=== PATIENT | female | born 1955 | race Caucasian/White ===

== ENCOUNTER → 2017-01-21 | Outpatient (CLI) | payer MEDICAID ==
[~2017-01-21] MED LIST: ASPIRIN LO-DOSE81 MG PO; COLACE100 MG PO; DITROPAN5 MG PO; FLEXERIL10 MG PO; HUMIBID LA (MU600 MG PO; HYDROCHLOROTHIA50 MG PO; LIORESAL10 MG PO; LIPITOR80 MG PO; MELATIN3 MG PO; MILK OF MA400 MG/5 M PO; MYRBETRIQ25 MG PO; NEURONTIN100 MG PO; NEURONTIN300 MG PO; NICODERM / HABIT7 MG TRANS; NORVASC10 MG PO; PLAVIX75 MG PO; PRINIVIL (ZESTR20 MG PO; PROTONIX40 MG PO; PROVENTIL OR V6.7 GM INH; QNASL8.7 GM INH; SENNA8.6 MG PO; SPIRIVA18 MCG INH; TRANDATE OR NO100 MG PO; TYLENOL325 MG PO; ZOFRAN4 MG PO
== END | disposition disaster alternative care site (69) ==
LOC: LGSMG 14:20
DX: N18.3 Chronic kidney disease, stage 3 (moderate) (principal)

== ENCOUNTER 2017-04-08 13:04 | Inpatient (IN) | payer MEDICAID ==
[~2017-04-08] VITALS: Ht 170.2 cm; Wt 73.8 kg
--- NOTE | ~2017-04-08 | CON ---
PATIENT'S NAME: SAIDA VENTURA [facility] AGE: 61 Y [address] ROOM: [id number] [place], [place] [address] LOCATION: [facility] ADMIT DATE: 04/08/2017 Consultation DISCHARGE DATE: FAMILY PHYSICIAN: SAMANTHA MALCOLM MD ATTENDING PHYSICIAN: Orlando Vu Team members reporting include Dr. Vu; Alicia Amos, social insurance specialist; Avril Noel RN; Christianne Clemens, PT; Chantelle Claros, PT; Janeen Zapien, OT; Sally Gould, Speech Therapy; Clau Erickson, therapeutic rec; and Sister Josee Zelaya, Pastoral Care. CURRENT STATUS: Morelia is a 61-year-old woman, admitted to our inpatient rehab unit on April 08, 2017 following a CVA. She also has a history of MS, hypertension, arthritis, asthma, dyslipidemia, lumbar spinal stenosis with neurogenic claudication, coronary artery disease. The patient is continent of bowel and bladder. No skin or pain issues. The patient is on a cardiac diet. She can complete all of her transfers at minimal assistance. The patient can ambulate 150 feet with a 4-wheeled walker with minimal assistance and twdc-gkik-qucj assistance. She has loss of tone in her right arm and leg. She can climb 4 stairs with one railing at minimal assistance. The patient can dress her upper body at moderate assistance; lower body, dependent; grooming, standby; bathing, moderate assistance; shower transfers, minimal to moderate assistance; and feeding, standby. The patient's right arm was affected. The patient's comprehension is at minimal assistance. Language and expression, minimal assistance. Memory minimal assistance and problem solving, minimal assistance. She does have facial weakness and numbness. Her speech is fairly clear. She does have a little facial droop, some motor planning control issues, as well as memory issues. The patient is open to pastoral care. DISCHARGE PLAN: The patient is receiving 3 hours of PT, OT, and speech Saturday through Saturday. The patient has daily rehab, nursing, physiatry involvement, as well as therapeutic recreational services 4 days per week. The patient has shown functional improvement and is progressing. Please see her plan of care for specific goals. Plan is for the patient to discharge in approximately 3 to 4 weeks. Plan is for the patient to return to home with her daughter in [place]. ALICIA AMOS FOR ORLANDO VU MD TD/evert PATIENT'S NAME: SAIDA VENTURA [facility] AGE: 61 Y [address] ROOM: [place] [address] LOCATION: [facility] ADMIT DATE: 04/08/2017 Consultation DISCHARGE DATE: FAMILY PHYSICIAN: SAMANTHA MALCOLM MD ATTENDING PHYSICIAN: Orlando Vu /[id number] d: 04/26/172322 t: 05/13/17 1412, CONSULTATION REPORT
--- NOTE | ~2017-04-08 | HP ---
PATIENT'S NAME: HILDA VENTURAH [facility] AGE: 61 Y [address] ROOM: [place] [address] LOCATION: [facility] ADMIT DATE: 04/08/2017 History & Physical DISCHARGE DATE: FAMILY PHYSICIAN: SAMANTHA MALCOLM MD ATTENDING PHYSICIAN: Orlando Jordan DATE OF SERVICE: HISTORY OF PRESENT ILLNESS: This 61-year-old lady is admitted referred from [facility] in [place] with right-sided weakness and confusion. Initially, she had been admitted with right-sided weakness, right upper and lower extremity weakness with no visual difficulty; however, there is some confusion also. She was put on intensive rehab there, and after she recovered she was more or less able to do a few things and family decided that she better be closer to home which is near [place], [place]. She was recommended to come here and after discussion, we decided to admit her for intensive rehabilitation. She is, at the present time, alert and oriented. Vital signs on admission, 115/73, temperature 98.3, pulses 91 and regular, respiration rate 11, and she is 5 feet 7 inches and weighs 71.5 kg. ALLERGIES: SHE IS ALLERGIC POSSIBLY TO CODEINE AND PENICILLIN. PAST MEDICAL HISTORY: Past history of significance, as follows: 1. History of hypertension. 2. Arthritis. 3. Asthma. 4. Multiple sclerosis per history. 5. Dyslipidemia. 6. Lumbar spine stenosis with neurogenic claudication on and off. 7. Status post appendectomy. 8. Status post section. 9. Status post cholecystectomy and hysterectomy. 10. Transforaminal interbody fusion, TLIF per history. 11. Coronary artery disease. 12. She is able to move right upper and lower extremity, but with not much ability due to weakness and decreased coordination. PHYSICAL EXAMINATION: HEAD: Normocephalic. PATIENT'S NAME: HILDA VENTURAH [facility] AGE: 61 Y [address] ROOM: [place] [address] LOCATION: [facility] ADMIT DATE: 04/08/2017 History & Physical DISCHARGE DATE: FAMILY PHYSICIAN: SAMANTHA MALCOLM MD ATTENDING PHYSICIAN: Orlando Jordan NEUROLOGIC: Cranial nerves 2 through 12 are within normal limits. She has no facial droop at the present time, maybe little neglect of the distant right temporal area. Tongue and soft palate are moving symmetrical. She can swallow well. NECK: Supple. Trachea is central. CHEST: Moving equally and lungs are clinically clear. HEART: Regular sinus rhythm at the present time. ABDOMEN: Soft. No organomegaly or tenderness. She has good bowel and bladder control. EXTREMITIES: Bilateral upper and lower extremity present. Right upper and lower extremity decreased coordination, muscle strength is about 4- throughout. Deep tendon reflex slightly brisk on the right side. GENITOURINARY: She has good bowel and bladder control. RECOMMENDATIONS AND PLAN: We will put at the present time on intensive PT, OT, and speech 3 hours per day, 15 hours per week for about 3 weeks, aiming to discharge modified independence. She is at the present time on the following medications. 1. Norvasc 10 mg p.o. daily. 2. Aspirin 81 mg p.o. daily. 3. Lipitor 80 mg p.o. daily. 4. Baclofen 10 mg p.o. t.i.d. 5. Plavix 75 mg p.o. daily. 6. Colace 100 mg p.o. b.i.d., hold if stools are liquid. 7. Lovenox 40 mg subcu daily. 8. Neurontin 100 mg p.o. daily. 9. Neurontin 300 mg p.o. at nighttime. 10. HydroDIURIL 12.5 mg p.o. b.i.d. 11. Labetalol 200 mg p.o. b.i.d. 12. Lisinopril 20 mg p.o. daily. Hold if systolic blood pressure below 110. 13. Nicotine patch 14 mg topical for 2 weeks and then 7 mg topical for 2 weeks and then discontinue. 14. Protonix 40 mg p.o. daily. 15. Tylenol 650 q.6 h., do not exceed acetaminophen 4 g every 24 hours. 16. Flexeril 10 mg at nighttime as needed every 24 hours. 17. Zofran 4 mg p.o. q.4 h. p.r.n. 18. Senna 8.6 mg b.i.d. p.r.n. 19. TEDS knee-high with Plexi-Pulses. 20. Incentive spirometer every 1 hour when up. LABORATORY DATA: Today's and on 04/09, her vitals are as follows. Blood pressure 115/73, temperature 98.3, pulse 91, and respiration rate 16. PATIENT'S NAME: SAIDA VENTURA [facility] AGE: 61 Y [address] ROOM: [place] [address] LOCATION: [facility] ADMIT DATE: 04/08/2017 History & Physical DISCHARGE DATE: FAMILY PHYSICIAN: SAMANTHA MALCOLM MD ATTENDING PHYSICIAN: Orlando Jodran Her CBC is as follows, white BC 5.5, RBC 4.07, hemoglobin 12.4, hematocrit 37.7, and platelets 250. CMS: Sodium 141, potassium 3.7, chloride 107, CO2 of 27, BUN 27, creatinine 1.0, and glucose 101. Prealbumin is 33. ASSESSMENT AND PLAN: We will initiate PT, OT, and speech 3 hours per day, 15 hours per week for the coming about 2 to 3 weeks aiming to discharge her at modified independence. All the above was explained to her in detail. She verbalized understanding and agreement with plan of care. We will keep her on hospitalist to follow and if needed we will ask for hospice for psychiatrist and neurologist. ORLANDO JORDAN MD WMS/modl /[id number] D: [id number] T: [id number] HISTORY & PHYSICAL
--- NOTE | ~2017-04-08 | DS ---
PATIENT'S NAME: SAIDA VENTURA [facility] AGE: 61 Y [address] ROOM: [place] [address] LOCATION: [facility] ADMIT DATE: 04/08/2017 Discharge Summary DISCHARGE DATE: FAMILY PHYSICIAN: Josette Cervantes MD ATTENDING PHYSICIAN: Orlando Jordan HISTORY: This 61-year-old lady was admitted to rehab unit at [place], [place] on 04/08/2017, is discharged to home on 05/03/2017. She was admitted with: 1. Unstable gait. 2. Dependent activities of daily living and self-care. 3. Status post right hemiplegia secondary to CVA with some speech difficulty and was put on intensive rehab. HOSPITAL COURSE: She has history significant of the following. MS and coronary artery disease with dyslipidemia. Also, status post TLIF for low back stenosis and stable. She is at the present time alert, oriented, and feels well. Offers no complaints of any pain. Vitals today on 05/02 were as follows. Blood pressure 123/76, temperature 97.8, pulse 67, and respiratory rate 14. She can ambulate at the present time, 150 feet x3 in gait training with slight bent forward posture and standby assistance to modified independent with single-point cane; however, she walks slowly and that is how she does it. She is at the present time to continue and I have given her a script for outpatient therapy 3 times per week for the coming 4 weeks. I will see her thereafter. She must follow with her family physician as soon as possible. Follow up with me in 4 [address] not [address] and/or operate any mechanical or electrical device until she is evaluated. DISCHARGE MEDICATIONS: She is at the present time on the following medications. 1. Norvasc 10 mg p.o. daily. PATIENT'S NAME: SAIDA VENTURA [facility] AGE: 61 Y [address] ROOM: [place] [address] LOCATION: [facility] ADMIT DATE: 04/08/2017 Discharge Summary DISCHARGE DATE: FAMILY PHYSICIAN: Josette Cervantes MD ATTENDING PHYSICIAN: Orlando Jordan 2. Aspirin children 81 mg p.o. daily. 3. Lipitor 80 mg p.o. daily. 4. 10 mg 3 times daily. 5. Plavix 75 mg p.o. daily. 6. Colace 100 mg p.o. twice daily. 7. Neurontin 100 mg p.o. daily. 8. Neurontin 300 mg at night at bedtime. 9. Trandate or Labetalol 200 mg twice daily p.o. with meals. 10. Prinivil 20 mg p.o. daily. 11. NicoDerm until 725 and then discontinue. 12. Protonix 40 mg p.o. daily. 13. The patient is on Myrbetriq 25 mg p.o. daily. 14. DuoNeb one each inhalation every 12 hours. 15. Tylenol 650 q.6 h., 36 of them, do not exceed 4 g every 24 hours. 16. Flexeril 10 mg p.o. at bedtime. 17. MOM 30 mL p.o. at bedtime. 18. Melatonin 3 mg at bedtime as needed. 19. Senokot one tablet twice daily p.r.n. FINAL DIAGNOSES: 1. Unstable gait. 2. Dependent activities and self-care. 3. Status post right hemiplegia secondary to CVA with some confusion and improved. 4. Multiple sclerosis per history. 5. Hypertension. 6. Status post transforaminal lumbar interbody fusion for low back pain and lumbar spinal stenosis . 7. Asthma. 8. Coronary artery disease per history. 9. Arthritis. 10. Dyslipidemia. 11. Status post cholecystectomy and appendectomy per history. She should not drive and/or operate any mechanical or electrical device until she is evaluated. Follow up with me in 4 weeks. Meanwhile she should follow with her family physician as soon as possible. All medications are given to her, any renewal and/or admission or discontinuation of medication is through her family physician. All the above was explained to her in detail. She verbalized understanding and agreement. PATIENT'S NAME: HILDA VENTURAH [facility] AGE: 61 Y [address] ROOM: [address] [address] LOCATION: [facility] ADMIT DATE: 04/08/2017 Discharge Summary DISCHARGE DATE: FAMILY PHYSICIAN: Josette Cervantes MD ATTENDING PHYSICIAN: Orlando Jordan MD WMS/modl /[id number] d: 05/03/17 1122 t: 05/04/17 0753, DISCHARGE SUMMARY
--- NOTE | ~2017-04-08 | CON ---
PATIENT'S NAME: KRISTINE VENTURA [facility] AGE: 61 Y [address] ROOM: [id number] [place] [address] LOCATION: [facility] ADMIT DATE: 04/08/2017 Consultation DISCHARGE DATE: FAMILY PHYSICIAN: SAMANTHA MALCOLM MD ATTENDING PHYSICIAN: Orlando Vu DATE OF CONSULTATION: 04/17/2017 Team members reporting include Dr. Vu; Alicia Amos, social work lecturer; July Renae RN; Chantelle Claros, PT; Christianne Clemens, PT; Janeen Zapien, OT; Sally Gould, Speech Therapy; Clau Erickson, therapeutic rec; and Sister Josee Putnam, Pastoral Care. CURRENT STATUS: Kristine is a 61-year-old woman, admitted to our inpatient rehab unit on April 08, 2017, following a CVA. The patient is incontinent of bladder at times. She takes Flexeril and Tylenol for pain. She is on a cardiac diet. Intake is good. Prealbumin is 33. The patient can transfer sit to supine, supine to sit at standby; sit to stand and stand to sit at standby; bed to chair and chair to bed, standby to contact guard assistance. She can walk 200 feet with a 4-wheeled walker at close standby assistance to contact guard assistance. She can climb 12 stairs with 2 railings at contact guard assistance. She has met 5/5 short-term PT goals. The patient can dress her upper and lower body at standby; grooming and bathing, standby, with adaptive equipment; toilet transfers, contact guard assistance, and toileting, contact guard assistance; shower transfers, standby. The patient can feed herself at standby with adaptive equipment. Her right upper extremity is improving. She has met 5/13 long-term OT goals. The patient's comprehension, language, and expression are at standby. Memory and problem solving, minimal to standby assistance; swallowing, standby to mod I. The patient has been very open to pastoral care. DISCHARGE PLAN: The patient is receiving 3 hours of PT, OT, and speech Saturday through Saturday. The patient has daily rehab, nursing, and physiatry involvement as well as therapeutic recreational services 4 days per week. The patient has shown functional improvement and is progressing. Please see her plan of care for specific goals. Plan is for patient to discharge in approximately 2 to 3 weeks. Plan is for patient to go home with her daughter here in [place] at discharge. ALICIA AMOS FOR ORLANDO VU MD PATIENT'S NAME: KRISTINE VENTURA [facility] AGE: 61 Y [address] ROOM: [place] [address] LOCATION: [facility] ADMIT DATE: 04/08/2017 Consultation DISCHARGE DATE: FAMILY PHYSICIAN: SAMANTHA MALCOLM MD ATTENDING PHYSICIAN: Orlando Vu TD/modl /[id number] d: 04/26/17 2334 t: 05/13/17 1417, CONSULTATION REPORT
--- NOTE | ~2017-04-08 | CON ---
PATIENT'S NAME: KRISTINE VENTURA [facility] AGE: 61 Y [address] ROOM: [address] [place], [place] [address] LOCATION: [facility] ADMIT DATE: 04/08/2017 Consultation DISCHARGE DATE: FAMILY PHYSICIAN: SAMANTHA MALCOLM MD ATTENDING PHYSICIAN: Orlando Vu DATE OF CONSULTATION: 04/24/2017 Team members reporting include Dr. Vu; Alicia Amos, high school social studies tutor; Avril Noel RN; Christianne Clemens, PT; Chantelle Claros, PT; Janeen Zapien, OT; Sally Gould, Speech Therapy; Clau Erickson, therapeutic rec; and Sister Josee Putnam, Pastoral Care. CURRENT STATUS: Kristine is a 61-year-old woman, admitted to our inpatient rehab unit on April 08, 2017, following a CVA with right-sided weakness. The patient is occasionally incontinent of bladder. She is on a cardiac diet, currently at low nutritional risk. She can transfer sit to supine and supine to sit at standby; sit to stand standby and bed to chair standby. She can walk 150 feet with a single-point cane at contact guard assistance with occasional standby assistance, occasional losses of balance. She can climb 8 stairs with one railing at contact guard assistance to standby assistance. She has met 5/5 short-term PT goals. The patient can dress her upper and lower body at standby; grooming, mod I, bathing, toilet transfers, shower transfers, and toileting, all at standby. She has met 11/13 long-term OT goals. The patient's comprehension is at standby to mod I; language expression standby to mod I. Memory and problem solving standby. The patient does have a deep face. DISCHARGE PLAN: The patient is receiving 3 hours of PT, OT and Speech Saturday through Saturday. The patient has daily rehab, nursing, and physiatry involvement of therapeutic recreational services 4 days per week. The patient has shown functional improvement and is progressing. Please see her plan of care for specific goals. Plan is for the patient to discharge in approximately 7 to 10 days. Plan is for the patient to discharge to home with her daughter here in [place]. ALICIA AMOS FOR ORLANDO VU MD TD/modl PATIENT'S NAME: KRISTINE VENTURA [facility] AGE: 61 Y [address] ROOM: [place] [address] LOCATION: [facility] ADMIT DATE: 04/08/2017 Consultation DISCHARGE DATE: FAMILY PHYSICIAN: SAMANTHA MALCOLM MD ATTENDING PHYSICIAN: Orlando Vu /[id number] d: 04/26/17 2333 t: 05/13/17 1415, CONSULTATION REPORT
--- NOTE | ~2017-04-08 | CON ---
PATIENT'S NAME: SAIDA VENTURA [facility] AGE: 62 Y [address] ROOM: [address] [place] [address] LOCATION: [facility] ADMIT DATE: 04/08/2017 Consultation DISCHARGE DATE: 05/03/2017 FAMILY PHYSICIAN: Josette Cervantes MD ATTENDING PHYSICIAN: Orlando Vu DATE OF CONSULTATION: 05/01/2017 Team members reporting include Dr. Vu; Alicia Amos, social research assistant; July Renae, RN; Christianne Clemens, PT; Chantelle Claros, PT; Janeen Zapien, OT; Sally Gould, Speech Therapy; Clau Erickson, therapeutic rec; and Sister Josee Putnam, Pastoral Care; also present was Lexx from Pharmacy. CURRENT STATUS: Lesley Carmona is a 61-year-old woman, admitted to our inpatient rehab unit following a CVA with right hemiplegia. The patient is incontinent of bladder at times. Does not generally complain of pain, but occasionally gets a Tylenol. The patient is on a cardiac diet, intake is 100%. Prealbumin is within normal limits. Currently, at low nutritional risk. She can transfer, dgf-ps-pulnzj, kyjlmi-yl-klf independently with extra time; rld-tv-oaajm, bqwwv-uj-mkr, mod I; and ztg-mi-epctr, ioawa-dm-due, mod I; using a single- point cane. She can walk 200-feet with a single-point cane at mod I. she does have an overall short stride length and she can climb 12 stairs at standby. She has met 4/5 short-term PT goals. The patient can dress her upper and lower body at standby; grooming and bathing, standby; and toilet and shower transfers, standby; toileting is currently also standby. Feeding is mod I. She has met 12/13 long-term OT goals. The patient's comprehension, language, and expression are at mod I with occasional word-finding difficulties. Memory and problem solving, standby; and swallow standby. Car transfers are currently at standby. No pastoral care concerns at this time. Pharmacy continues to monitor, the patient being on Lovenox. DISCHARGE PLAN: The patient is receiving 3 hours of PT, OT, and speech Saturday through Saturday. The patient has daily rehab, nursing, and physiatry involvement as well as therapeutic recreational services. The patient has shown for functional improvement and is progressing. Please see her plan of care for specific goals. Plan is for the patient to discharge on Saturday, May 03, 2017. The patient will go home for the weekend with her daughter here in [place], [place], and then will go to [place] the following week. ALICIA AMOS FOR ORLANDO VU MD PATIENT'S NAME: SAIDA VENTURA [facility] AGE: 62 Y [address] ROOM: [address] [address] LOCATION: [facility] ADMIT DATE: 04/08/2017 Consultation DISCHARGE DATE: 05/03/2017 FAMILY PHYSICIAN: Josette Crevantes MD ATTENDING PHYSICIAN: Orlando Vu TD/modl /[id number] d: 05/19/17 1621 t: 06/24/17 1127, CONSULTATION REPORT
--- NOTE | ~2017-04-08 | CON ---
PATIENT'S NAME: KRISTINE VENTURA [facility] AGE: 61 Y [address] ROOM: [id number] [place], [place] [address] LOCATION: [facility] ADMIT DATE: 04/08/2017 Consultation DISCHARGE DATE: FAMILY PHYSICIAN: SAMANTHA MALCOLM MD ATTENDING PHYSICIAN: Orlando Jordan DATE OF CONSULTATION: 04/09/2017 REFERRING PHYSICIAN: Orlando Jordan MD This is a medical consultation for medical management of Ms. Kristine Ventura. REASON FOR CONSULTATION: Medical management. CHIEF COMPLAINT: Medical management of a 61-year-old female who is recovering from a left RUCHI multifocal ischemic cerebrovascular accident with acute on chronic right hemiparesis. HISTORY OF PRESENT ILLNESS: This is a 61-year-old female who approximately 7 days ago experienced worsening of chronic right hemiparesis secondary to history of a stroke in the left lacunar area in 2014. This was progressive in nature. She was seen in her local emergency room at [place] where it was confirmed that she had a stroke. Her daughter then drove her from [place] to [facility] where she was further evaluated and treated. She was treated acutely at the [facility]. MRI findings were consistent with multiple focal ischemic infarcts in the left RUCHI territory. Plavix was added to her regimen, and statin therapy was maximized. Tobacco cessation was advised and has been smoke-free while hospitalized. She has been initiated on a restorative plan and sent to [facility] for further rehab services. The patient does have a past medical history to include a left lacunar infarct in 2014 that left her with some residual right hemiparesis, but she has been relatively independent at home. She has known essential hypertension and high cholesterol. She has mild asthma, but denies taking any inhalers currently. She has not been in any recent exacerbation. She also has a history of some lumbar stenosis with neurogenic claudication. She is status post TLIF in June 2016 without complication. She does have acid reflux that is well controlled. She is a long-term smoker for greater than 50 years, but tells me today she is quitting and has not had a smoke since being hospitalized. She also has a history of overactive bladder in which she failed oxybutynin therapy. She reports having a history of frequent urinary tract infections while on oxybutynin and was recently changed to Myrbetriq with good response. There is a note of multiple sclerosis within her diagnoses; however, she PATIENT'S NAME: KRISTINE VENTURA [facility] AGE: 61 Y [address] ROOM: [id number] [place], [place] [address] LOCATION: [facility] ADMIT DATE: 04/08/2017 Consultation DISCHARGE DATE: FAMILY PHYSICIAN: SAMANTHA MALCOLM MD ATTENDING PHYSICIAN: Orlando Jordan states this was initially found on her presenting CT scan in 2014. She had a followup with a neurologist in [place] who did not feel the findings were consistent with multiple sclerosis. So, this diagnosis is still questionable. Currently, the patient has completed physical therapy session and is residing in her room with her daughter when I interviewed her. She states she tolerated the therapy well. She does have some word processing difficulty, but is relatively alert and oriented to person, place, and time. She does complain of right upper extremity weakness with progression worse distally. She denies any lightheadedness or dizziness problems. She denies any swallowing issues. She does not complain of any chest pain, palpitations, or fluttering feelings. She denies any history of heart murmurs. She denies any shortness of breath, but does complain of a productive cough worsened since she has quit smoking. She denies any nausea, vomiting, or diarrhea. No constipation. No melena. She does complain of some overactive bladder symptoms to include urge incontinence and burning with initiation of stream that comes and goes. No active pain or fullness, and she does feel like she empties her bladder. REVIEW OF SYSTEMS: All review of systems was completed and deemed negative other than as stated above in the HPI. PAST MEDICAL HISTORY: 1. Asthma, mild. 2. Essential hypertension. 3. Hypercholesterolemia. 4. History of lumbar stenosis with neurogenic claudication. 5. Question multiple sclerosis. 6. GERD. 7. History of left lacunar ischemic CVA. 8. Tobaccoism. 9. Overactive bladder. 10. General arthritis. PAST SURGICAL HISTORY: 1. Appendectomy. 2. x1. 3. Hysterectomy. 4. Cholecystectomy. 5. Transforaminal lumbar interbody fusion in 2016. 6. Fatty tumor removal. FAMILY MEDICAL HISTORY: Mother of breast cancer. Father of unknown causes. High blood PATIENT'S NAME: KRISTINE VENTURA [facility] AGE: 61 Y [address] ROOM: [address] [place] [address] LOCATION: [facility] ADMIT DATE: 04/08/2017 Consultation DISCHARGE DATE: FAMILY PHYSICIAN: SAMANTHA MALCOLM MD ATTENDING PHYSICIAN: Orlando Jordan pressure and heart disease in sister. SOCIAL HISTORY: The patient is a pack-a-day smoker for greater than 50 years. She has had a history of polysubstance abuse, but greater than 20 years ago. She denies any alcohol use. She does state large caffeine consumption with greater than 12 cups of coffee a day. She is , and all her children are living. 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 ALLERGIES: CODEINE CAUSES NAUSEA. MEDICATIONS: Current medications as listed by Dr. Jordan and reviewed with the patient. 1. Aspirin 81 mg p.o. daily. 2. Colace 100 mg p.o. twice daily. 3. HydroDIURIL 12.5 mg p.o. twice daily. 4. Lipitor 80 mg p.o. daily. 5. Neurontin 100 mg p.o. daily. 6. Neurontin 300 mg p.o. every night at bedtime. 7. Norvasc 10 mg p.o. every day. 8. Plavix 75 mg p.o. daily. 9. Lisinopril 20 mg p.o. daily. 10. Protonix 40 mg p.o. daily before meals. 11. Trandate 200 mg p.o. twice daily with meals. 12. Lovenox 40 mg subcutaneous daily. 13. NicoDerm 14 mg transdermal daily. PRN medicines are: 1. Flexeril 10 mg p.o. at bedtime. 2. Senna 1 tablet p.o. twice daily as needed. 3. Tylenol 325 to 650 mg p.o. every 6 hours as needed for pain. 4. Zofran 4 mg p.o. every 6 hours as needed for nausea. The patient also states she should be on melatonin 3 mg p.o. every night at bedtime and Myrbetriq 25 mg p.o. every day. PHYSICAL EXAMINATION: VITAL SIGNS: Temperature of 97.5 orally with a pulse of 67, respiratory rate of 14, blood pressure 106/71, and oxygen saturation of 97%. Her weight is 71.50 kg. GENERAL: This is a 61-year-old female. She is a white , who appears a bit older than her stated age, who is comfortable in the chair. She is alert, oriented, and conversational with some dysarthric movements. HEENT: Head: Normocephalic and atraumatic. Eyes: Extraocular movements are intact. Pupils are equal, round, and reactive to light and accommodation. She does have a mild facial droop to the right. No tongue deviation. PATIENT'S NAME: KRISTINE VENTURA [facility] AGE: 61 Y [address] ROOM: [place] [id number] LOCATION: [facility] ADMIT DATE: 04/08/2017 Consultation DISCHARGE DATE: FAMILY PHYSICIAN: SAMANTHA MALCOLM MD ATTENDING PHYSICIAN: Orlando Jordan Posterior pharynx is clear. NECK: Supple without any lymphadenopathy or thyromegaly. HEART: Regular rate and rhythm without any gallop or murmur. S1 and S2 present. She has no carotid bruits. She has no pedal edema. LUNGS: Clear throughout all cobb. No adventitious sounds. Unlabored breathing pattern. Normal respiratory rate. Equal and symmetric expansion. ABDOMEN: Round, soft, nontender, and nondistended. Bowel sounds are present. She has no organomegaly appreciated. She has no CVA tenderness. EXTREMITIES: Equal in size. They reveal no clubbing or cyanosis. NEUROLOGIC: Mild dysarthria with significant right hemiparesis worsening distally. She does have a right hand grasp involuntary range of motion which is weakened in the right upper extremity, rated 2 to 3 over 5. She is unable to move her right lower extremity on her own. The left side reveals normal movement and 5/5 strength both in the upper and lower extremities. She does reveal some hyperreflexia in the right lower extremity when compared to the left. PSYCHIATRIC: Mood is appropriate. SKIN: Without any issues. LABORATORY DATA: Laboratory findings reveal a CBC showed a white blood cell count of 5.5, hemoglobin of 12.4, hematocrit of 37.7, and platelet count of 250. Chemistry panel showed a glucose of 101, BUN of 27, creatinine of 1.0, sodium 141, potassium of 3.7, chloride of 107, CO2 of 27, and calcium 8.9. Liver functions were normal. GFR was 56. Urinalysis was negative for nitrites, positive for bacteria, and leukocytes were 500. Her prealbumin was 33. Imaging from outside hospital was reviewed, and MRI of the cervical spine showed no evidence of cervical myelopathy. Chest x-ray on 04/04 showed no acute cardiopulmonary process. Lumbar spine showed L4-L5 spinal fusion. An MRI of the brain showed multiple small acute infarcts in the left superior frontal paramedian and subcortical white matter and minimally paramedian parietal lobe. MRI of the head showed no significant steno-occlusive disease in the carotid arteries, but had multifocal bilateral distal M1 and M2 segment stenosis in the middle cerebral arteries and an occlusion in the right anterior cerebral artery. Echo showed left ventricular ejection fraction of 65% to 70% with normal left ventricle chamber size and systolic function. No wall abnormalities noted. IMPRESSION AND PLAN: 1. Left anterior cerebral artery multifocal ischemic cerebrovascular accident. To continue dual-antiplatelet therapy as well as statin medication and silke in on her blood pressure control as well as smoking cessation. She will need an extensive restorative plan given her late effect secondary to the stroke to include. PATIENT'S NAME: KRISTINE VENTURA [facility] AGE: 61 Y [address] ROOM: [address] [place] [id number] LOCATION: [facility] ADMIT DATE: 04/08/2017 Consultation DISCHARGE DATE: FAMILY PHYSICIAN: SAMANTHA MALCOLM MD ATTENDING PHYSICIAN: Orlando Jordan 2. Acute on chronic right hemiparesis. Continue with current restorative plan as detailed in #1. 3. Mild dysarthria secondary to left anterior cerebral artery multifocal ischemic cerebrovascular accident. To include restorative plan as per physiatry team. 4. History of mild asthma. The patient is currently not showing any signs or symptoms of exacerbation. There was some question of whether or not the patient had been on Spiriva, but denies any active medications to include inhalers. We will provide her with an as-needed bronchodilator. 5. Essential hypertension. To continue her current treatment plan with a goal systolic blood pressure of less than 120/80. She will need to be monitored close while on multiple agents to include amlodipine, lisinopril, labetalol, and hydrochlorothiazide. She did mention to me in her history that she had previously been off hydrochlorothiazide secondary to an acute kidney injury, but has not experienced any complications since its resumption. 6. Hypercholesterolemia. To continue statin therapy and diet and lifestyle modification and education. 7. History of lumbar stenosis with neurogenic claudication, status post TLIF. To continue current baclofen and Flexeril as needed. Continue with restorative plan per physiatry team and Neurontin. 8. Multiple sclerosis, query. Continue with baclofen as ordered. Further evaluation per neurology consultation as requested by Dr. Jordan. 9. Gastroesophageal reflux disease. Continue proton pump inhibitor. 10. History of left lacunar infarct in 2015, detailed in plan in #1. 11. Tobaccoism, smoker. To continue with nicotine patch with tapering dose accordingly with cessation education given. Greater than 5 minutes were spent in cessation education. 12. Overactive bladder. We will continue her Myrbetriq as she has been taking at home and obviously monitor her symptoms. Her urinalysis did show bacteria, which I am reported by the daughter that she has a history of urinary tract infections. She is relatively asymptomatic, and she has no white count. She has no fever. We will continue to observe this closely, and we will culture the urine, and if necessary, we will treat accordingly, but currently without any symptoms. There is no indication for treatment. 13. Deep venous thrombosis prophylaxis with Lovenox. 14. Full code. Total time in consultation was 40 minutes with chart review, patient interview, and review of plan. The above line of management was discussed and reviewed with the patient who stated complete understanding. All questions were answered with statements of satisfaction. It was also reviewed with Dr. Middleton. We will continue to follow along care while in the inpatient rehab unit. Thank you for this consultation of Mrs. Ventura. PATIENT'S NAME: KRISTINE VENTURA [facility] AGE: 61 Y [address] ROOM: [place] [id number] LOCATION: [facility] ADMIT DATE: 04/08/2017 Consultation DISCHARGE DATE: FAMILY PHYSICIAN: SAMANTHA MALCOLM MD ATTENDING PHYSICIAN: Orlando Jordan BRAIN POWELL APRN, APRN FOR MD GUILLERMINA LOPEZ/evert /[id number] d: t: 04/10/17 1527, CONSULTATION REPORT
[~2017-04-08 13:04] MED LIST changes: -COLACE100 MG PO; -FLEXERIL10 MG PO; -LIORESAL10 MG PO; -MELATIN3 MG PO; -MILK OF MA400 MG/5 M PO; -MYRBETRIQ25 MG PO; -NEURONTIN300 MG PO; -NICODERM / HABIT7 MG TRANS; -PLAVIX75 MG PO; -SENNA8.6 MG PO; -ZOFRAN4 MG PO
[2017-04-09 05:35] LABS: BASOPHIL % 0.7 %; EOSINOPHIL # 0.1 K/uL (0.0-0.5); EOSINOPHIL % 2.5 %; HEMATOCRIT 37.7 % (33.0-46.0); HEMOGLOBIN 12.4 g/dL (10.0-15.0); IMMATURE GRANULOCYTE % 0.4 %; LYMPHOCYTE % 36.7 %; MCH 30.5 pg (27.0-34.0); MCHC 32.9 gm/dL (32.0-36.5); MCV 92.6 fl (83.0-98.0); MONOCYTE # 0.5 K/uL (0.0-1.0); MONOCYTE % 9.1 %; MPV 9.3 fl (9.4-12.4); NEUTROPHIL # (ANC) 2.8 K/uL (1.8-7.8); NEUTROPHIL % 50.6 %; NRBC % 0 /100WBC (0-0.00); PLATELET COUNT 250 K/uL (150-450); RBC 4.07 M/uL (3.50-5.50); RDW-CV 12.4 % (11.9-14.6); WBC 5.5 K/uL (4.0-11.0)
[2017-04-09 06:04] LABS: ALBUMIN 3.5 gm/dL (3.5-5.0); ANION GAP 10.7 (10.0-19.0); CALCIUM 8.9 mg/dL (8.5-10.5); POTASSIUM 3.7 mMol/L (3.7-5.1); TOTAL BILIRUBIN 0.3 mg/dL (0.0-1.5); TOTAL PROTEIN 6.7 g/dL (6.0-8.4)
[2017-04-09] MEDS ORDERED: LIORESAL10 MG PO (10:06)
[2017-04-09] MEDS ORDERED: COLACE100 MG PO (10:07)
[2017-04-09] MEDS ORDERED: ZOFRAN4 MG PO (10:10)
[2017-04-09] MEDS ORDERED: SENNA8.6 MG PO (10:13)
[2017-04-09 14:28] LABS: BILIRUBIN URINE NEGATIVE (NEGATIVE); BLOOD URINE 10 /UL (NEGATIVE); COLOR URINE YELLOW (YELLOW); GLUCOSE URINE NEGATIVE (NEGATIVE); KETONE URINE NEGATIVE (NEGATIVE); LEUKOCYTES URINE 500 /UL (NEGATIVE); NITRITE URINE NEGATIVE (NEGATIVE); PROTEIN URINE NEGATIVE (NEGATIVE); TURBIDITY URINE CLEAR (CLEAR); UROBILINOGEN URINE NORMAL (NORMAL)
[2017-04-09 15:15] LABS: BACTERIA URINE MANY (NEGATIVE); RENAL EPITH URINE 0-2 #/HPF (NEGATIVE); WBC URINE 20-50 #/HPF (NEGATIVE)
[2017-04-09 15:16] LABS: HYALINE CAST URINE 0-2 #/LPF (NEGATIVE); MUCUS URINE 1+ (NEGATIVE)
[2017-04-11 05:41] LABS: EOSINOPHIL # 0.1 K/uL (0.0-0.5); EOSINOPHIL % 3.1 %; HEMATOCRIT 34.3 % (33.0-46.0); HEMOGLOBIN 11.9 g/dL (10.0-15.0); IMMATURE GRANULOCYTE % 0.2 %; LYMPHOCYTE # 1.5 K/uL (0.8-4.0); LYMPHOCYTE % 35.8 %; MCH 31.5 pg (27.0-34.0); MCHC 34.7 gm/dL (32.0-36.5); MCV 90.7 fl (83.0-98.0); MONOCYTE # 0.4 K/uL (0.0-1.0); MONOCYTE % 8.7 %; MPV 9.6 fl (9.4-12.4); NEUTROPHIL # (ANC) 2.1 K/uL (1.8-7.8); NEUTROPHIL % 51.2 %; NRBC % 0 /100WBC (0-0.00); PLATELET COUNT 250 K/uL (150-450); RBC 3.78 M/uL (3.50-5.50); RDW-CV 12.1 % (11.9-14.6); WBC 4.2 K/uL (4.0-11.0)
[2017-04-15 06:14] LABS: ALBUMIN 3.4 gm/dL (3.5-5.0); ANION GAP 8.9 (10.0-19.0); CALCIUM 9.5 mg/dL (8.5-10.5); CREATININE 1.1 mg/dL (0.5-1.1); POTASSIUM 3.9 mMol/L (3.7-5.1); TOTAL PROTEIN 6.6 g/dL (6.0-8.4)
[2017-04-15 06:17] LABS: TOTAL BILIRUBIN 0.4 mg/dL (0.0-1.5)
[2017-04-17 05:47] LABS: BASOPHIL % 0.5 %; EOSINOPHIL # 0.2 K/uL (0.0-0.5); EOSINOPHIL % 3.3 %; HEMATOCRIT 34.9 % (33.0-46.0); HEMOGLOBIN 11.8 g/dL (10.0-15.0); IMMATURE GRANULOCYTE % 0.2 %; LYMPHOCYTE # 1.5 K/uL (0.8-4.0); LYMPHOCYTE % 26.8 %; MCH 31.6 pg (27.0-34.0); MCHC 33.8 gm/dL (32.0-36.5); MCV 93.3 fl (83.0-98.0); MONOCYTE # 0.5 K/uL (0.0-1.0); MONOCYTE % 8.7 %; MPV 9.9 fl (9.4-12.4); NEUTROPHIL # (ANC) 3.5 K/uL (1.8-7.8); NEUTROPHIL % 60.5 %; NRBC % 0 /100WBC (0-0.00); PLATELET COUNT 262 K/uL (150-450); RBC 3.74 M/uL (3.50-5.50); RDW-CV 12.2 % (11.9-14.6); WBC 5.7 K/uL (4.0-11.0)
[2017-04-22 05:29] LABS: ALBUMIN 3.3 gm/dL (3.5-5.0); ANION GAP 9.8 (10.0-19.0); CREATININE 1.1 mg/dL (0.5-1.1); POTASSIUM 3.8 mMol/L (3.7-5.1); TOTAL BILIRUBIN 0.4 mg/dL (0.0-1.5); TOTAL PROTEIN 6.2 g/dL (6.0-8.4)
[2017-04-29 05:22] LABS: ALBUMIN 3.4 gm/dL (3.5-5.0); ANION GAP 10.1 (10.0-19.0); CALCIUM 9.3 mg/dL (8.5-10.5); CREATININE 1.1 mg/dL (0.5-1.1); POTASSIUM 4.1 mMol/L (3.7-5.1); TOTAL BILIRUBIN 0.4 mg/dL (0.0-1.5); TOTAL PROTEIN 6.2 g/dL (6.0-8.4)
[2017-05-02] MEDS ORDERED: PLAVIX75 MG PO (15:35)
[2017-05-02] MEDS ORDERED: NEURONTIN300 MG PO (15:39)
[2017-05-02] MEDS ORDERED: NICODERM / HABIT7 MG TRANS (15:47)
[2017-05-02] MEDS ORDERED: MYRBETRIQ25 MG PO (15:51)
[2017-05-02] MEDS ORDERED: MILK OF MA400 MG/5 M PO (15:56)
[2017-05-02] MEDS ORDERED: FLEXERIL10 MG PO (15:56)
[2017-05-02] MEDS ORDERED: MELATIN3 MG PO (16:00)
== END 2017-05-03 11:49 | disposition disaster alternative care site (69) | DRG 57 ==
LOC: GIRP 18:55
PROVIDERS: Internal Medicine; ADMIT Physical Medicine & Rehabilitation
DX: I69.351 Hemiplegia and hemiparesis following cerebral infarction affecting right dominant side (principal); G35 Multiple sclerosis; I10 Essential (primary) hypertension; I69.398 Other sequelae of cerebral infarction; R41.0 Disorientation, unspecified; M19.90 Unspecified osteoarthritis, unspecified site; J45.909 Unspecified asthma, uncomplicated; E78.00 Pure hypercholesterolemia, unspecified; R32 Unspecified urinary incontinence; N32.81 Overactive bladder; E78.5 Hyperlipidemia, unspecified; M48.06 Spinal stenosis, lumbar region; R26.9 Unspecified abnormalities of gait and mobility; I25.10 Atherosclerotic heart disease of native coronary artery without angina pectoris; K21.9 Gastro-esophageal reflux disease without esophagitis; Z87.440 Personal history of urinary (tract) infections; Z87.891 Personal history of nicotine dependence; Z79.82 Long term (current) use of aspirin; I69.322 Dysarthria following cerebral infarction; Z98.1 Arthrodesis status; Z79.02 Long term (current) use of antithrombotics/antiplatelets
CPT/HCPCS: J1650